=== PATIENT | male | born 1950 | race Caucasian/White ===

== ENCOUNTER → 2017-03-22 | Outpatient (REF) | payer OTHER ==
[~2017-03-22] MED LIST: AREDS 2 PO; COQ-1CAP PO; FISHCAP PO; VITAMIN D PO; VITAMIN E PO; [UNRECOGNIZED DRUG - OTHER] PO
[2017-03-22 12:23] LABS: BASO % 0.5 % (0.0-1.0); EOS # 0.2 K/mm3 (0.0-0.50); EOS % 2.6 % (0.0-3.0); LARGE UNSTAINED CELL # 0.2 K/mm3 (0.0-0.4); LARGE UNSTAINED CELL % 2.1 % (0.0-4.0); LYMPH # 1.9 K/mm3 (1.5-4.5); MEAN CORPUSCULAR HEMOGLOBIN 34.7 pg (27.0-33.0); MEAN CORPUSCULAR HGB CONC 34.8 g/dl (32.0-36.5); MEAN CORPUSCULAR VOLUME 99.7 fl (80.0-96.0); MONO # 0.4 K/mm3 (0.0-0.8); MONO % 5.6 % (0.0-5.0); NEUTROPHILS # 4.7 K/mm3 (1.8-7.7); NEUTROPHILS % 65.1 % (36.0-66.0); PLATELET COUNT, AUTOMATED 274 k/mm3 (150-450); RED CELL DISTRIBUTION WIDTH 13.1 % (11.5-14.5); WHITE BLOOD COUNT 7.3 K/mm3 (4.0-10.0)
[2017-03-22 13:08] LABS: ALBUMIN/GLOBULIN RATIO 1.29 (1.00-1.93); BILIRUBIN,TOTAL 0.5 MG/DL (0.2-1.0); CALCIUM LEVEL 9.2 MG/DL (8.8-10.2); CREATININE FOR GFR 1.65 MG/DL (0.70-1.30); GLOMERULAR FILTRATION RATE 44.8 (>49); POTASSIUM SERUM 4.4 MEQ/L (3.5-5.1); TOTAL PROTEIN 7.1 GM/DL (6.4-8.2)
== END ==
LOC: M LABDRAW1 11:19
PROVIDERS: ATTEND Emergency Medicine
DX: E78.2 Mixed hyperlipidemia (principal)

== ENCOUNTER → 2017-03-28 | Outpatient (REF) | payer OTHER ==
[2017-03-28 13:35] LABS: MEAN CORPUSCULAR HEMOGLOBIN 34.7 pg (27.0-33.0); MEAN CORPUSCULAR VOLUME 99.3 fl (80.0-96.0); RED CELL DISTRIBUTION WIDTH 12.8 % (11.5-14.5); WHITE BLOOD COUNT 5.7 K/mm3 (4.0-10.0)
[2017-03-28 13:41] LABS: URIC ACID 4.1 MG/DL (3.5-7.2)
[2017-03-28 13:59] LABS: BASOPHILS 1 % (0-4); EOSINOPHILS 3 % (0-5)
[2017-03-28 14:29] LABS: ERYTHROCYTE SEDIMENTATION RATE 35 mm/hr (0-20)
[2017-03-30 00:10] LABS: Lyme Disease IgG/IgM Antibodie <0.91 ISR (0.00-0.90); Lyme Disease IgM Ab Quantitati <0.80 index (0.00-0.79)
== END ==
LOC: M LABDRAW1 12:57
PROVIDERS: ATTEND Physician Assistant Surgical
DX: M17.11 Unilateral primary osteoarthritis, right knee (principal)

== ENCOUNTER → 2017-03-30 | Outpatient (CLI) | payer OTHER ==
[~2017-03-30] MED LIST changes: +E-Z-GAS II EFFERVESCENT PACKET (SODIUM BICARB./CITRIC ACID/SIMETHICONE) As Ordered ONE; +E-Z-HD 98% w/w 340GM SUSP BTL As Ordered ONE; +E-Z-PAQUE 96% w/w SUSP 176GM BTL As Ordered ONE
--- NOTE | 2017-03-31 07:18 | REP ---
Clinical: dysphagia. Technique: Single contrast and double contrast technique using barium sulfate substrates. Findings: Real time fluoroscopic evaluation demonstrates normal motility through the oropharynx and hypopharynx without mass/mass effect or contour abnormality. The esophagus demonstrates normal mucosal outline and distension without ulcerations, polyps, mass lesions, mucosal irregularities or extrinsic abnormalities. No areas of stenosis or stricture appreciated. A small hiatal hernia is suggested without reflux Limited evaluation of the stomach demonstrates normal gastric rugal folds. Total fluoroscopic time: 1 minute 59 seconds . Impression: Essentially normal esophagram/barium swallow study. Small hiatal hernia suggested without evidence for reflux. Signed by Korey Sarah MD 03/31/2017 07:10 A
== END ==
LOC: M RAD 08:42
PROVIDERS: ATTEND Emergency Medicine
DX: R13.10 Dysphagia, unspecified (principal)

== ENCOUNTER → 2017-05-20 | Outpatient (CLI) | payer OTHER ==
[~2017-05-20] VITALS: Ht 180.3 cm; Wt 78.9 kg
[~2017-05-20] MED LIST changes: +CENTTAB PO; +COEN1POW PO; +COUM2.5T17 PO; -E-Z-GAS II EFFERVESCENT PACKET (SODIUM BICARB./CITRIC ACID/SIMETHICONE) As Ordered ONE; -E-Z-HD 98% w/w 340GM SUSP BTL As Ordered ONE; -E-Z-PAQUE 96% w/w SUSP 176GM BTL As Ordered ONE; +GLUC1CAP10 PO; +LIDOCAINE 2% INJ 100 MG/5 ML SDV (FOR ANES.) As Ordered ONE; +MAGN1TAB25 PO; +MULT1TAB10 PO; +NIAC500T5 PO; +NS 1,000 ML IV ONE; +OMEP40CA2 PO; +PERC5TAB12 PO; +PRAV20TA2 PO; +PROPOFOL 200 MG/20 ML VIAL As Ordered ONE; +ROSU40TA PO; +VITA250011 SL; +vitamin b12 PO
--- NOTE | 2017-05-20 10:29 | ROOR ---
Patient Name: Gildardo Correa Procedure Date: 05/20/2017 10:06 AM Date of : 1950 Age: 66 Room: [facility] Gender: Male Note Status: Finalized Procedure: Upper GI endoscopy Indications: Dysphagia Providers: Trace ZEPEDA MD Referring MD: EDISON REYES MD Requesting Provider: Medicines: Monitored Anesthesia Care Complications: No immediate complications. Procedure: Pre-Anesthesia Assessment: - The heart rate, respiratory rate, oxygen saturations, blood pressure, adequacy of pulmonary ventilation, and response to care were monitored throughout the procedure. The Endoscope was introduced through the mouth, and advanced to the second part of duodenum. The upper GI endoscopy was accomplished without difficulty. The patient tolerated the procedure well. Findings: One moderate (circumferential scarring or stenosis; an endoscope may pass) benign-appearing, intrinsic stenosis was found 40 cm from the incisors. This measured 1 cm (in length) and was traversed. A TTS dilator was passed through the scope. Dilation with a 15-16.5-18 mm balloon dilator was performed to 18 mm. The dilation site was examined and showed moderate improvement in luminal narrowing. Biopsies were taken with a cold forceps for histology. Moderately severe esophagitis was found at the gastroesophageal junction. Patchy mild inflammation characterized by erosions and erythema was found in the gastric antrum. Biopsies were taken with a cold forceps for Helicobacter pylori testing. The examined duodenum was normal. Impression: - Benign-appearing esophageal stenosis. Dilated to 18 mm. - Moderate reflux esophagitis in lower esophagus. Biopsied. Rule out Subramanian's esophagus. - Mild to moderate gastritis. Biopsied. - Normal examined duodenum. Recommendation: - Use Prilosec (omeprazole) 40 mg PO daily. - (the script was sent to your pharmacy on file) - Telephone endoscopist for pathology results in 2 weeks. - Observe patient's clinical course. Trace Zepeda MD Trace ZEPEDA MD 05/20/2017 10:28:45 AM This report has been signed electronically. Number of Addenda: 0 Note Initiated On: 05/20/2017 10:06 AM Estimated Blood Loss: Estimated blood loss: none.
[2017-05-20 10:45] VITALS: BP 135/81
== END | disposition home or self-care (01) ==
LOC: M OPP 08:18
PROVIDERS: ATTEND Internal Medicine Gastroenterology
DX: R13.10 Dysphagia, unspecified (principal); K29.70 Gastritis, unspecified, without bleeding; K21.0 Gastro-esophageal reflux disease with esophagitis; K22.2 Esophageal obstruction; E78.00 Pure hypercholesterolemia, unspecified; M19.90 Unspecified osteoarthritis, unspecified site; M25.569 Pain in unspecified knee; M25.559 Pain in unspecified hip; M25.60 Stiffness of unspecified joint, not elsewhere classified; R06.83 Snoring; Z79.899 Other long term (current) drug therapy; Z80.1 Family history of malignant neoplasm of trachea, bronchus and lung; Z80.42 Family history of malignant neoplasm of prostate

== ENCOUNTER → 2017-06-30 | Outpatient (CLI) | payer MEDICARE, OTHER ==
[~2017-06-30] MED LIST changes: -LIDOCAINE 2% INJ 100 MG/5 ML SDV (FOR ANES.) As Ordered ONE; -NS 1,000 ML IV ONE; -PROPOFOL 200 MG/20 ML VIAL As Ordered ONE
[2017-06-30 10:52] LABS: MEAN CORPUSCULAR HEMOGLOBIN 34.8 pg (27.0-33.0); MEAN CORPUSCULAR HGB CONC 35.7 g/dl (32.0-36.5); MEAN CORPUSCULAR VOLUME 97.5 fl (80.0-96.0); RED CELL DISTRIBUTION WIDTH 12.9 % (11.5-14.5); WHITE BLOOD COUNT 6.5 K/mm3 (4.0-10.0)
[2017-06-30 10:56] LABS: INR 0.95
--- NOTE | 2017-06-30 11:11 | REP ---
CHEST, TWO VIEWS: Two views of the chest are performed and compared to multiple prior exams, most recently 04/26/2013. There is no evidence of acute infiltrate. The heart is upper limits of normal in size. There is mild tortuosity of the thoracic aorta. The mediastinal silhouette is unchanged. There are degenerative changes of the spine. IMPRESSION: No acute infiltrate. Signed by Vladimir Squires MD 06/30/2017 03:13 P
[2017-06-30 11:15] LABS: ALBUMIN 4.2 GM/DL (3.2-5.2); ALKALINE PHOSPHATASE 113 U/L (45-117); ALT/SGPT 26 U/L (12-78); ANION GAP 5 MEQ/L (8-16); AST/SGOT 12 U/L (15-37); BILIRUBIN,TOTAL 0.8 MG/DL (0.2-1.0); BLOOD UREA NITROGEN 31 MG/DL (7-18); CALCIUM LEVEL 9.3 MG/DL (8.8-10.2); CARBON DIOXIDE LEVEL 31 MEQ/L (21-32); CHLORIDE LEVEL 105 MEQ/L (98-107); CREATININE FOR GFR 1.26 MG/DL (0.70-1.30); GLOMERULAR FILTRATION RATE > 60.0 (>49); GLUCOSE, FASTING 81 MG/DL (80-110); POTASSIUM SERUM 3.9 MEQ/L (3.5-5.1); SODIUM LEVEL 141 MEQ/L (136-145); TOTAL PROTEIN 7.2 GM/DL (6.4-8.2)
--- NOTE | 2017-06-30 13:20 | ECGEPIP ---
Stationary ECG Study [facility] Test Date: 2017-06-30 Pat Name: TIM GARCIA Department: Room: - Gender: M Bosom Presser: JUAREZ : 1950 Requested By: Billie Owens Order Number: [id number] Reading MD: Michelle Plunkett Measurements Intervals [place] Rate: 60 P: -37 SC: 150 QRS: -24 QRSD: 121 T: 10 QT: 414 QTc: 415 Interpretive Statements SINUS RHYTHM LEFT AXIS DEVIATION MODERATE INTRAVENTRICULAR CONDUCTION DELAY NO PRIOR Electronically Signed On 06-30-2017 13:20:10 EDT by Michelle Plunkett
--- NOTE | 2017-07-12 15:41 | HPE ---
DATE OF ADMISSION: 07/12/2017 CHIEF COMPLAINT: Left hip pain. HISTORY OF PRESENT ILLNESS: This is a pleasant 67-year-old male with progressively worsening left hip pain and stiffness. He has failed to improve with conservative treatment. He has elected for surgery for his continued symptoms. He has pain with weightbearing activities and his activities of daily living. His x-rays are notable for advanced osteoarthritis of the left hip joint. He has consented for a left total hip arthroplasty by Dr. Roman Benítez. Medical optimization was performed by Dr. Noguera. ALLERGIES: None. CURRENT MEDICATIONS: - glucosamine HCl 1500 mg twice a day - CoQ 10 100 mg once a day - AREDS twice daily - Centrum Silver two times a day - vitamin B12 - magnesium 400 mg - niacin 500 mg - omeprazole 20 mg two of those once a day - rosuvastatin calcium 40 mg once a day PAST MEDICAL HISTORY: Includes high cholesterol. PAST SURGICAL HISTORY: Includes tonsillectomy and left foot Bear's neuroma excision. 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 FAMILY HISTORY: Noncontributory. REVIEW OF SYSTEMS: This patient denies chest pain, heart palpitations, cough, wheezing, difficulty breathing and shortness of breath. He denies abdominal pain, nausea, vomiting, diarrhea or constipation. He denies recent upper respiratory infection or urinary tract infection symptoms. He does complain of persistent left hip pain. PHYSICAL EXAMINATION: GENERAL: He is well-nourished, well-developed in no acute distress, alert male patient. He walks with a significant limp favoring the left lower extremity. He is using a single-leg cane. VITAL SIGNS: He is 72 inches tall, weighs 173.6 pounds with a temperature of 96.6, blood pressure 128/78, pulse of 80 and respirations of 16. Neck was supple without adenopathy or jugular venous distension. There were no carotid bruits appreciated upon auscultation. Lungs were clear to auscultation without rales or wheeze throughout. Heart with regular rate and rhythm. Abdomen: Bowel sounds were present. Extremities: Examination of the hip revealed intact skin without erythema, edema or ecchymosis. He had decreased range of motion with internal, external rotation secondary to pain and stiffness. The limb was neurovascularly intact. LABORATORY DATA: EKG showed sinus rhythm at 60 beats per minute. Chest x-ray showed no acute infiltrates. UA was within normal limits with a specific gravity of 1.018. Urine culture showed no growth. Nasal and sinus culture showed normal frank. Protime 12.8, INR 0.95. Red count of 3.59, hemoglobin 12.5, hematocrit 35.0, MCV 97.5, MCH 34.8, otherwise within normal limits. Sedimentation rate was 21, glucose 81, BUN 31, creatinine 1.26, sodium 141, potassium 3.9. IMPRESSION: Symptomatic osteoarthritis of the left hip joint. PLAN: Consented for a left total hip arthroplasty with Dr. Roman Benítez.
== END ==
LOC: M ADMPAT 09:10
PROVIDERS: ATTEND Orthopaedic Surgery
DX: Z01.818 Encounter for other preprocedural examination (principal); M16.12 Unilateral primary osteoarthritis, left hip

== ENCOUNTER 2017-07-14 07:15 | Inpatient (IN) | payer MEDICARE, OTHER ==
[2017-06-30 10:09] VITALS: BP 132/86
[2017-07-14] VITALS (7 sets, daily range): BP systolic 92–148; BP diastolic 52–78
[~2017-07-14] VITALS: Ht 180.3 cm; Wt 78.5 kg
[~2017-07-14 07:15] MED LIST changes: +ACETAMINOPHEN 500 MG TAB PO ONE; -COUM2.5T17 PO; +LR 1,000 ML IV ONE; -PERC5TAB12 PO
[2017-07-14] MEDS ORDERED: ceFAZolin 1GM INJ (J0690) As Ordered ONE (07:30)
[2017-07-14] MEDS ORDERED: fentaNYL 100 MCG/2 ML INJECTION (J3010) As Ordered ONE (10:34)
[2017-07-14] MEDS ORDERED: ePHEDrine SULFATE 25 MG/5 ML(5MG/ML) SYRINGE As Ordered ONE (10:34)
[2017-07-14] MEDS ORDERED: MIDAZOLAM INJ 2 MG/2 ML VIAL (J2250) As Ordered ONE (10:34)
[2017-07-14] MEDS ORDERED: PROPOFOL 200 MG/20 ML VIAL As Ordered ONE ×4 (10:34→11:43)
[2017-07-14] MEDS ORDERED: PHENYLephrine HCL 500 MCG/5 ML (100MCG/ML) SYRINGE (J2370) As Ordered ONE ×2 (10:38→11:40)
[2017-07-14] MEDS ORDERED: LIDOCAINE 2% INJ 100 MG/5 ML SDV (FOR ANES.) As Ordered ONE (10:43)
[2017-07-14] MEDS ORDERED: MORPHINE 1MG/ML IN 0.9% NACL 100ML IV BAG As Ordered ONE (12:26)
[2017-07-14] MEDS ORDERED: PERCOCET 5MG/325MG TAB PO PRN (12:45)
[2017-07-14] MEDS ORDERED: NALBUPHINE HCL 10 MG/ML AMP (J2300) IV PRN (12:45)
[2017-07-14] MEDS ORDERED: MORPHINE 1MG/ML IN 0.9% NACL 100ML IV BAG IV PRN (12:45)
[2017-07-14] MEDS ORDERED: ONDANSETRON 4MG/2ML VIAL (J2405) IV PRN ×2 (12:45)
[2017-07-14] MEDS ORDERED: fentaNYL 100 MCG/2 ML INJECTION (J3010) IV PRN (12:45)
[2017-07-14] MEDS ORDERED: EPIDURAL/PCA KEYS XX PRN (12:45)
[2017-07-14] MEDS ORDERED: diphenhydrAMINE INJ 50MG/ML VIAL (J1200) IV PRN (12:45)
[2017-07-14] MEDS ORDERED: LR 1,000 ML IV SCH (12:45)
[2017-07-14] MEDS ORDERED: NALOXONE INJ 0.4 MG/1 ML VIAL (J2310) IV PRN (12:45)
[2017-07-14] MEDS ORDERED: ACETAMINOPHEN TAB 650MG DOSE (2X325MG) PO PRN (12:45)
[2017-07-14] MEDS ORDERED: FLEET ENEMA PR PRN (12:45)
[2017-07-14] MEDS: LR 1,000 ML IV SCH (16:22)
[2017-07-14] MEDS ORDERED: WARFARIN SOD 5 MG TAB PO ONE (17:00)
--- NOTE | 2017-07-14 20:08 | RO ---
DATE OF PROCEDURE: 07/14/2017 PREPROCEDURE DIAGNOSIS: Left hip degenerative arthritis. POSTPROCEDURE DIAGNOSIS: Left hip degenerative arthritis. PROCEDURE: Left total hip arthroplasty using a standard size 6 Corydon stem with a +5 neck and a 36 mm head, and a 54 mm Gription acetabular cup. Prosthesis was made by [employer]. SURGEON: Dr. Billie Benítez CONTROL SYSTEMS DRAFTING OFFICER: Ms. Veronica Blanchard ANESTHESIA: Spinal. COMPLICATIONS: None. SPECIMENS: Femoral head. ESTIMATED BLOOD LOSS: 150 mL. DESCRIPTION OF PROCEDURE: Antibiotics were given intravenously preoperatively and then successful spinal anesthetic was induced, Bassett catheter placed. He was placed in a lateral decubitus position with a Sundeep hip positioner utilized, down leg well padded, especially the peroneal nerve, and an axillary roll utilized. The left hip area was then carefully prepped and draped in the usual sterile fashion. Then, after appropriate time-out, a longitudinal incision was made for a direct lateral approach to the hip. Bovie cautery was used to coagulate crossing vessels down to the tensor fascia. Tensor fascia was then divided in line with the skin incision. The gluteus medius was split in the anterior one-third, posterior two-third junction, and the underlying gluteus minimus was then divided. Carefully, the tissues were dissected off the greater trochanter distally as we externally rotated the hip. Then, eventually was able to dislocate anteriorly and place the leg in the anterior leg bag. The starter reamer was placed in the piriformis fossa, followed by the canal finding reamer, then the lateralizing reamer. Then, we reamed up to a 6 reamer. The template was used to help guide the femoral osteotomy with a saw and then we broached up to a size 6. This had good fit and fill. No calcar planing was necessary. We then exposed the acetabulum and performed a labral excision 360 degrees. We then began reaming, beginning with a 45 mm reamer and then advanced up to 53 and deepened right to the floor. Deep soft tissues were removed from the depths of the acetabulum and then a trial 54 cup actually fit nicely and good alignment with the extramedullary guide to help direct our version in abduction alignment. He had an anterior osteophyte. The Gription cup was placed, size #54, after copiously irrigating out the acetabulum as I did several times throughout the operation. The central hole eliminator was placed and then the 36 mm polyethylene was placed and checked to be sure that it was secure. We then exposed the femoral canal once again, placing the leg back into the leg bag, irrigated out the canal copiously, placed the trial broach with first the standard 1.5 neck with a 36 ball. The hip was actually quite stable in flexion and internal rotation and extension external rotation, but there was a bit of telescoping, thus I felt the +5 would be necessary. Thus, I did trial with a +5, and this improved his telescoping significantly, and I did not feel I needed to advance it further for fear of causing over lengthening. But the hip was still quite stable to flexion internal rotation and extension external rotation. I did not think we needed a lateralized stem. I did remove the trial components at this point and copiously irrigated the femoral canal once again and placed the real #6 stem, followed by the 36 mm +5 ball after drying off the trunnion. The hip was then reduced after copiously irrigating once again. I then anatomically closed the gluteus minimus back with interrupted #1 PDS sutures, gluteus medius was closed back anatomically with interrupted #1 PDS sutures, we irrigated between layers, closed the tensor fascia with a combination of interrupted #1 PDS sutures, then a running #1 Stratafix suture. Irrigated again, closed the deep subdermal tissues with interrupted #2-0 PDS sutures, skin was closed with canelo, covered by Adaptic dry sterile bulky dressing. He was then placed supine with an abduction pillow and then transferred to the recovery room in stable condition. There were no intraoperative complications. Veronica Santo was critical to the success of the procedure by helping to manipulate the leg back in and out of the leg bag, helped to provide appropriate soft tissue retraction as necessary for me to perform the operation smoothly and efficiently and safely.
--- NOTE | 2017-07-14 20:16 | CR.PDOC ---
[facility] Consultation Consultation DATE OF CONSULTATION: 07/14/17 PRIMARY CARE PHYSICIAN: Dr. Noguera REFERRING PROVIDER: Beny Blanco M.D. ATTENDING PHYSICIAN: Dr. Blanchard REASON FOR CONSULTATION/CHIEF COMPLAINT: . Medical management HISTORY OF PRESENT ILLNESS: . 67-year-old male with past medical history of GERD, dyslipidemia, and osteoarthritis was admitted to [facility] for total left hip replacement. At this time , the patient denies any acute complaints of fevers, chills, chest pain, shortness of breath, abdominal pain, or any nausea/vomiting/diarrhea. The patient does state that he has some limited range of motion of his left hip due to recent surgical intervention. However, states that his pain is well controlled. The hospitalist service was consulted for medical management of the patient's chronic comorbidities. ALLERGIES: Please see below. HOME MEDICATIONS: Please see below. PAST MEDICAL HISTORY: 1. . As noted in HPI. PAST SURGICAL HISTORY: 1. Tonsillectomy, left foot Bear's neuroma excision FAMILY HISTORY: Noncontributory SOCIAL HISTORY: Nonsmoker, occasionally takes alcohol, denies any illicit drug use. 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 REVIEW OF SYSTEMS: 10 point review of systems negative unless otherwise specified in HPI. PHYSICAL EXAMINATION: VITAL SIGNS: Please see below. GENERAL APPEARANCE: . Awake, alert, in no acute distress HEENT: . Normocephalic, atraumatic RESPIRATORY: . Clear to auscultation bilaterally CARDIOVASCULAR: . Normal rate, normal S1, S2 ABDOMEN: . Soft, nontender, nondistended EXTREMITIES: . Left hip with limited range of motion secondary to recent surgery. Surgical dressing applied incisional site. LABORATORY DATA: Please see below. Left hip arthroplasty DVT and pain management as per surgical team Dyslipidemia Statin GERD Continue PPI DVT prophylaxis As per surgical team Thank you for allowing the medicine service to participate in the care of this patient. The patient will be followed by Dr. Osorio of the hospitalist service starting 07/15/17 at 7 AM should you have any further inquiries. Vital Signs/I&O Vital Signs Date Time Temp Pulse Resp B/P (MAP) Pulse Ox O2 Delivery O2 Flow Rate FiO2 07/14/17 17:45 99.2 88 11 98/54 (69) 100 Nasal Cannula 2.0 Allergies Coded Allergies: No Known Allergies (Unverified , 05/13/17) Home Medications Scheduled Coenzyme Q10 (Coenzyme Q-10) 1 Pow Pow, 1 TAB PO QAM, (Reported) Cyanocobalamin (Vitamin B-12) 2,500 Mcg Sub, 2,500 MCG SL QAM, (Reported) Glucosamine Chondroitin (Glucosamine Chondroitin) 1 Cap Cap, 1 CAP PO BID, ( Reported) Magnesium Oxide (Magnesium) 400 Mg Tab, 400 MG PO QAM, (Reported) Multivitamins (Centrum Silver) 1 Tab Tab, 1 TAB PO BID, (Reported) Niacin (Niacin) 500 Mg Tab, 500 MG PO QAM, (Reported) Omeprazole (Omeprazole) 40 Mg Cap, 40 MG PO QAM, (Reported) Rosuvastatin Calcium (Rosuvastatin Calcium) 40 Mg Tab, 40 MG PO QHS, (Reported) [Areds 2] , Unknown Dose PO BID, (Reported) BENY BLANCO MD Jul 14, 2017 20:16
[2017-07-14] MEDS: ROSUVASTATIN 10 MG TAB (CRESTOR) PO SCH (22:18)
[2017-07-14] MEDS: MULTIVITAMINS/MINERALS THERAP 1 TAB PO SCH (22:18)
[2017-07-15] VITALS (7 sets, daily range): BP systolic 114–160; BP diastolic 60–78; O2SAT 96
[2017-07-15] MEDS: LR 1,000 ML IV SCH (01:15)
[2017-07-15 06:42] LABS: MEAN CORPUSCULAR HEMOGLOBIN 34.1 pg (27.0-33.0); MEAN CORPUSCULAR HGB CONC 33.4 g/dl (32.0-36.5); MEAN CORPUSCULAR VOLUME 102.1 fl (80.0-96.0); RED CELL DISTRIBUTION WIDTH 13.3 % (11.5-14.5); WHITE BLOOD COUNT 12.6 K/mm3 (4.0-10.0)
[2017-07-15 06:58] LABS: CREATININE FOR GFR 2.47 MG/DL (0.70-1.30); POTASSIUM SERUM 4.4 MEQ/L (3.5-5.1)
[2017-07-15] MEDS: MIRALAX *UNIT DOSE* 17GM PACKET PO SCH (08:35)
[2017-07-15] MEDS: MOM 30ML SUSPENSION UDC PO SCH (08:35)
[2017-07-15] MEDS: OMEPRAZOLE 20 MG CAP PO SCH (08:36)
[2017-07-15] MEDS: PERCOCET 5MG/325MG TAB PO PRN ×4 (08:36→22:53)
[2017-07-15] MEDS: MULTIVITAMINS/MINERALS THERAP 1 TAB PO SCH ×2 (08:36→22:53)
[2017-07-15] MEDS: ONDANSETRON 4 MG TAB (S0181) PO PRN ×2 (08:36→12:42)
--- NOTE | 2017-07-15 11:29 | REP ---
Clinical: Status post arthroplasty. Technique: AP and cross-table lateral views. Findings: The patient is status post left hip replacement with normal positioning and appearance to the femoral and acetabular components. Overlying postsurgical changes appreciated. Impression: Satisfactory left hip replacement radiographs. Signed by Korey Sarah MD 07/15/2017 11:22 A
[2017-07-15] MEDS: SIMETHICONE 80 MG CHEW TAB PO SCH ×3 (12:42→22:53)
[2017-07-15] MEDS: OCUVITE 1 TAB PO SCH ×2 (12:42→22:53)
--- NOTE | 2017-07-15 14:31 | IPNPDOC ---
Subjective Date Seen The patient was seen on 07/15/17. Subjective Chief Complaint/HPI The patient is a 67-year-old male admitted with a reason for visit of Arthritis Left Hip. Events since last encounter complains of bloating and flatulence and acid reflux. did not have any appetite this am and could not eat any breakfast. no nausea or vomiting no abdominal pain or diarrhea. No fever or chills. Objective Physical Examination General Exam: Positive: Alert, Cooperative, No Acute Distress Eye Exam: Positive: PERRLA, Conjunctiva & lids normal, EOMI, Negative: Sclera icteric ENT Exam: Positive: Atraumatic, Mucous membr. moist/pink, Pharynx Normal Neck Exam: Positive: Supple, Negative: JVD, thyromegaly Chest Exam: Positive: Clear to auscultation, Normal air movement Telemetry: Positive: No significant arrhythmia Abdomen Exam: Positive: Normal bowel sounds, Soft, Negative: Tenderness, Hepatospenomegaly Extremity Exam: Positive: Normal pulses, Negative: Clubbing, Cyanosis, Edema Assessment /Plan Problems (1) S/P total hip arthroplasty Status: Acute Problem Text: s/p left total hip arthroplasty for advanced osteoarthritis pain control and dvt prophylaxis as per ortho. (2) GERD (gastroesophageal reflux disease) Status: Chronic Problem Text: continue on ppi will give simethicone. (3) Dyslipidemia Status: Chronic (4) KAVON (acute kidney injury) Status: Acute Problem Text: will monitor i and o , ivf , avoid nephrotoxins. Plan/VTE VTE Prophylaxis Ordered?: Yes VS, I&O, 24H, Fishbone Vital Signs/I&O Vital Signs Date Time Temp Pulse Resp B/P (MAP) Pulse Ox O2 Delivery O2 Flow Rate FiO2 07/15/17 12:43 18 07/15/17 10:00 97.7 90 128/68 (88) 99 Room Air 07/15/17 06:00 2.0 I&O- Last 24 Hours up to 6 AM 07/15/17 06:00 Intake Total 2690 ml Output Total 1350 ml Balance 1340 ml Laboratory Data 24H LABS Laboratory Tests 2 07/15/17 06:18: Anion Gap 11, Glomerular Filtration Rate 28.0L, Blood Urea Nitrogen 26H, Creatinine 2.47H, Sodium Level 144, Potassium Level 4.4, Chloride Level 105, Carbon Dioxide Level 28, Calcium Level 8.0L CBC/BMP Laboratory Tests 07/15/17 06:18 Red Blood Count 3.17 L, Mean Corpuscular Volume 102.1 H, Mean Corpuscular Hemoglobin 34.1 H, Mean Corpuscular Hemoglobin Concent 33.4, Red Cell Distribution Width 13.3, Calcium Level 8.0 L QUIANA DAMON MD Jul 15, 2017 14:31
--- NOTE | 2017-07-15 16:43 | REP ---
Clinical: Abdominal distension. Ileus. Technique: Two supine views of the abdomen and pelvis. Findings: Bowel gas pattern is nonspecific. Skeletal structures demonstrate age-related degenerative changes. No organomegaly. No abnormal calcifications. Surgical clips in the left lower abdomen. Impression: Nonspecific bowel gas pattern. Signed by Korey Sarah MD 07/15/2017 04:35 P
[2017-07-15] MEDS ORDERED: WARFARIN SOD 5 MG TAB PO ONE (17:00)
[2017-07-15] MEDS: METOCLOPRAMIDE INJ 10MG/2ML VIAL (J2765) IV SCH ×2 (17:12→22:52)
[2017-07-15] MEDS: D5W/0.9% SODIUM CHLORIDE 1,000 ML IV SCH (17:12)
[2017-07-15] MEDS: PANTOPRAZOLE 40MG INJ (PROTONIX) (C9113) IV SCH (22:52)
[2017-07-15] MEDS: ROSUVASTATIN 10 MG TAB (CRESTOR) PO SCH (22:52)
[2017-07-16] MEDS: METOCLOPRAMIDE INJ 10MG/2ML VIAL (J2765) IV SCH ×3 (05:17→20:40)
[2017-07-16] MEDS: PERCOCET 5MG/325MG TAB PO PRN ×3 (05:18→14:45)
[2017-07-16] MEDS: D5W/0.9% SODIUM CHLORIDE 1,000 ML IV SCH ×2 (05:18→18:18)
[2017-07-16] MEDS: SIMETHICONE 80 MG CHEW TAB PO SCH ×3 (05:18→17:07)
[2017-07-16 06:00] VITALS: BP 135/64
[2017-07-16 06:34] LABS: MEAN CORPUSCULAR HEMOGLOBIN 34.8 pg (27.0-33.0); MEAN CORPUSCULAR VOLUME 99.4 fl (80.0-96.0); RED CELL DISTRIBUTION WIDTH 12.8 % (11.5-14.5); WHITE BLOOD COUNT 10.6 K/mm3 (4.0-10.0)
[2017-07-16 06:40] LABS: INR 1.38
[2017-07-16 06:57] LABS: CALCIUM LEVEL 8.5 MG/DL (8.8-10.2); CREATININE FOR GFR 1.45 MG/DL (0.70-1.30); GLOMERULAR FILTRATION RATE 51.8 (>49); POTASSIUM SERUM 3.8 MEQ/L (3.5-5.1)
[2017-07-16] MEDS: MOM 30ML SUSPENSION UDC PO SCH (08:52)
[2017-07-16] MEDS: PANTOPRAZOLE 40MG INJ (PROTONIX) (C9113) IV SCH ×2 (08:52→20:39)
[2017-07-16] MEDS: MIRALAX *UNIT DOSE* 17GM PACKET PO SCH (08:52)
[2017-07-16] MEDS: OCUVITE 1 TAB PO SCH ×2 (08:53→20:40)
[2017-07-16] MEDS: OMEPRAZOLE 20 MG CAP PO SCH (08:53)
[2017-07-16] MEDS: MULTIVITAMINS/MINERALS THERAP 1 TAB PO SCH ×2 (08:53→20:40)
--- NOTE | 2017-07-16 10:34 | IPNPDOC ---
Subjective Date Seen The patient was seen on 07/16/17. Subjective Chief Complaint/HPI The patient is a 67-year-old male admitted with a reason for visit of Arthritis Left Hip. Events since last encounter pateint still complains of bloating last evening had several episodes of brownish vomiting episodes was not passing much gas yesterday so was placed npo , ivf and pantoprazole bid, had abdominal xary showed nonspecific bowel gas pattern, suggested ng tube but patient refused. this am says passing gas and feels bloating is a little less. Objective Physical Examination General Exam: Positive: Alert, Cooperative, No Acute Distress Eye Exam: Positive: PERRLA, Conjunctiva & lids normal, EOMI, Negative: Sclera icteric ENT Exam: Positive: Atraumatic, Mucous membr. moist/pink, Pharynx Normal Neck Exam: Positive: Supple, Negative: JVD, thyromegaly Chest Exam: Positive: Clear to auscultation, Normal air movement Heart Exam: Positive: Rate Normal, Regular Rhythm, Normal S1, Normal S2, Negative: Gallops, Murmurs, Rubs, Other Abdomen Exam: Positive: BS Hypoactive, Soft, Other (distended abdomen ), Negative: Tenderness, Hepatospenomegaly Extremity Exam: Positive: Normal pulses, Negative: Clubbing, Cyanosis, Edema Assessment /Plan Problems (1) Ileus, postoperative Status: Acute Response to Treatment: Improving Problem Text: Had mild post operative ileus improving with bowel rest and ivf. will start clear liquids today (2) KAVON (acute kidney injury) Status: Acute Problem Text: prerenal improving with IVF will monitor I/O (3) S/P total hip arthroplasty Status: Acute Problem Text: s/p left total hip arthroplasty for advanced osteoarthritis pain control and dvt prophylaxis as per ortho. (4) Dyslipidemia Status: Chronic (5) GERD (gastroesophageal reflux disease) Status: Chronic Problem Text: continue on ppi will give simethicone. Plan/VTE VTE Prophylaxis Ordered?: Yes VS, I&O, 24H, Fishbone Vital Signs/I&O Vital Signs Date Time Temp Pulse Resp B/P (MAP) Pulse Ox O2 Delivery O2 Flow Rate FiO2 07/16/17 09:50 18 07/16/17 06:00 97.7 84 135/64 (87) 99 Nasal Cannula 2.0 I&O- Last 24 Hours up to 6 AM 07/16/17 06:00 Intake Total 472.5 ml Output Total 1225 ml Balance -752.5 ml Laboratory Data 24H LABS Laboratory Tests 2 07/16/17 05:59: Prothrombin Time 17.3H, Prothromb Time International Ratio 1.38, Anion Gap 9, Glomerular Filtration Rate 51.8, Blood Urea Nitrogen 31H, Creatinine 1.45H, Sodium Level 140, Potassium Level 3.8, Chloride Level 103, Carbon Dioxide Level 28, Calcium Level 8.5L CBC/BMP Laboratory Tests 07/16/17 05:59 Red Blood Count 2.82 L, Mean Corpuscular Volume 99.4 H, Mean Corpuscular Hemoglobin 34.8 H, Mean Corpuscular Hemoglobin Concent 35.0, Red Cell Distribution Width 12.8, Calcium Level 8.5 L QUIANA DAMON MD Jul 16, 2017 10:34
[2017-07-16 14:00] VITALS: BP 126/69
[2017-07-16] MEDS ORDERED: WARFARIN SOD 3 MG TAB PO ONE (17:00)
[2017-07-16] MEDS: ROSUVASTATIN 10 MG TAB (CRESTOR) PO SCH (20:40)
[2017-07-16 22:00] VITALS: BP 164/84
[2017-07-17] MEDS: SIMETHICONE 80 MG CHEW TAB PO SCH ×2 (00:58→06:10)
[2017-07-17] MEDS: PERCOCET 5MG/325MG TAB PO PRN ×2 (01:01→10:20)
[2017-07-17 05:55] LABS: MEAN CORPUSCULAR HEMOGLOBIN 34.4 pg (27.0-33.0); MEAN CORPUSCULAR HGB CONC 34.3 g/dl (32.0-36.5); MEAN CORPUSCULAR VOLUME 100.5 fl (80.0-96.0); RED CELL DISTRIBUTION WIDTH 12.9 % (11.5-14.5); WHITE BLOOD COUNT 8.5 K/mm3 (4.0-10.0)
[2017-07-17 06:00] VITALS: BP 150/74
[2017-07-17 06:01] LABS: INR 1.64
[2017-07-17] MEDS: METOCLOPRAMIDE INJ 10MG/2ML VIAL (J2765) IV SCH (06:10)
[2017-07-17 06:22] LABS: CALCIUM LEVEL 8.2 MG/DL (8.8-10.2); CHLORIDE LEVEL 106 MEQ/L (98-107); GLUCOSE, FASTING 135 MG/DL (80-110); POTASSIUM SERUM 4.2 MEQ/L (3.5-5.1); SODIUM LEVEL 142 MEQ/L (136-145)
[2017-07-17 06:33] LABS: BLOOD UREA NITROGEN 17 MG/DL (7-18)
[2017-07-17 06:39] LABS: ANION GAP 3 MEQ/L (8-16); CARBON DIOXIDE LEVEL 33 MEQ/L (21-32)
[2017-07-17] MEDS ORDERED: PERC5TAB12 PO (07:17)
[2017-07-17] MEDS ORDERED: COUM2.5T17 PO (07:17)
[2017-07-17] MEDS: PANTOPRAZOLE 40MG INJ (PROTONIX) (C9113) IV SCH (09:00)
[2017-07-17] MEDS: OCUVITE 1 TAB PO SCH (10:20)
[2017-07-17] MEDS: MOM 30ML SUSPENSION UDC PO SCH (10:20)
[2017-07-17] MEDS: MIRALAX *UNIT DOSE* 17GM PACKET PO SCH (10:20)
[2017-07-17] MEDS: MULTIVITAMINS/MINERALS THERAP 1 TAB PO SCH (10:21)
[2017-07-17] MEDS: OMEPRAZOLE 20 MG CAP PO SCH (10:21)
--- NOTE | 2017-07-17 10:27 | IPNPDOC ---
Subjective Date Seen The patient was seen on 07/17/17. Subjective Chief Complaint/HPI The patient is a 67-year-old male admitted with a reason for visit of Arthritis Left Hip. Events since last encounter feeling better , moving gas though has not had any bowel movements yet, no vomiting has been tolerating oral liquids. Objective Physical Examination General Exam: Positive: Alert, Cooperative, No Acute Distress Eye Exam: Positive: PERRLA, Conjunctiva & lids normal, EOMI, Negative: Sclera icteric ENT Exam: Positive: Atraumatic, Mucous membr. moist/pink, Pharynx Normal Neck Exam: Positive: Supple, Negative: JVD, thyromegaly Chest Exam: Positive: Clear to auscultation, Normal air movement Heart Exam: Positive: Rate Normal, Regular Rhythm, Normal S1, Normal S2, Negative: Gallops, Murmurs, Rubs, Other Abdomen Exam: Positive: BS Hypoactive, Soft, Other (distended abdomen ), Negative: Tenderness, Hepatospenomegaly Extremity Exam: Positive: Normal pulses, Negative: Clubbing, Cyanosis, Edema Assessment /Plan Problems (1) Ileus, postoperative Status: Resolved Response to Treatment: Improving Problem Text: will advance to soft diet. (2) KAVON (acute kidney injury) Status: Resolved Problem Text: prerenal improved stop IVF (3) S/P total hip arthroplasty Status: Acute Problem Text: s/p left total hip arthroplasty for advanced osteoarthritis pain control and dvt prophylaxis as per ortho. (4) Dyslipidemia Status: Chronic (5) GERD (gastroesophageal reflux disease) Status: Chronic Problem Text: continue on ppi will give simethicone. Plan/VTE VTE Prophylaxis Ordered?: Yes VS, I&O, [facility]H, [facility] Vital Signs/I&O Vital Signs Date Time Temp Pulse Resp B/P (MAP) Pulse Ox O2 Delivery O2 Flow Rate FiO2 07/17/17 10:20 18 07/17/17 06:00 97.2 89 150/74 (99) 99 Room Air 07/17/17 01:31 2.0 I&O- Last 24 Hours up to 6 AM 07/17/17 06:00 Intake Total 4425 ml Output Total 850 ml Balance 3575 ml Laboratory Data 24H LABS Laboratory Tests 2 07/17/17 05:39: Prothrombin Time 19.9H, Prothromb Time International Ratio 1.64, Anion Gap 3L, Blood Urea Nitrogen 17, Creatinine 1.00, Sodium Level 142, Potassium Level 4.2, Chloride Level 106, Carbon Dioxide Level 33H, Calcium Level 8.2L CBC/BMP Laboratory Tests 07/17/17 05:39 Red Blood Count 2.56 L, Mean Corpuscular Volume 100.5 H, Mean Corpuscular Hemoglobin 34.4 H, Mean Corpuscular Hemoglobin Concent 34.3, Red Cell Distribution Width 12.9, Calcium Level 8.2 L QUIANA DAMON MD Jul 17, 2017 10:27
--- NOTE | 2017-07-21 09:18 | DSES ---
DATE OF ADMISSION: 07/14/2017 DATE OF DISCHARGE: 07/17/2017 ADMISSION DIAGNOSIS: Osteoarthritis of the left hip. OTHER DIAGNOSES: Gastric reflux disease and elevated lipids. DISCHARGE DIAGNOSIS: Osteoarthritis of the left hip, status post left total hip arthroplasty. OPERATION PERFORMED: Left total hip arthroplasty. HISTORY: This pleasant 67-year-old male patient with progressively worsening left hip pain and stiffness. He failed to improve with conservative management. He was admitted for elective hip replacement on the left side. HOSPITAL COURSE: The patient was admitted on day of surgery and underwent a left total hip arthroplasty, which was uneventful. He did well in the postoperative period. His hospital course was without complications. He was up with physical therapy per their protocol. His pain was controlled. On day of discharge, he was doing well, weightbearing as tolerated on his left lower extremity. He will use adjusted dose Coumadin and LAINE stockings for 30 days postoperative for deep vein thrombosis (DVT) prophylaxis. He will resume his preoperative medications and diet. He was given instructions to include but not limited to wound monitoring and activity limitations. He will follow up in our office in 10-14 days for surgical followup. He will use oral pain medications for pain control. Please refer to the medical record for further details.
== END 2017-07-17 12:40 | disposition home health service (06) | DRG 470 ==
LOC: M OR 07:15 → M MS5PR 13:05
PROVIDERS: ADMIT Orthopaedic Surgery; ATTEND Orthopaedic Surgery
PROC: 0SRB02Z Replacement of Left Hip Joint with Metal on Polyethylene Synthetic Substitute, Open Approach (ICD-10-PCS; principal; 2017-07-14 09:30)
DX: M16.0 Bilateral primary osteoarthritis of hip (principal); N17.9 Acute kidney failure, unspecified; K56.7 Ileus, unspecified; K21.9 Gastro-esophageal reflux disease without esophagitis; E78.5 Hyperlipidemia, unspecified; M54.2 Cervicalgia; M54.5 Low back pain; Z79.899 Other long term (current) drug therapy

== ENCOUNTER → 2017-11-08 | Outpatient (CLI) | payer MEDICARE, OTHER ==
[2017-11-08 10:17] LABS: HEMOGLOBIN 13.5 g/dl (14.0-18.0); MEAN CORPUSCULAR HEMOGLOBIN 31.7 pg (27.0-33.0); MEAN CORPUSCULAR HGB CONC 33.8 g/dl (32.0-36.5); MEAN CORPUSCULAR VOLUME 93.9 fl (80.0-96.0); PLATELET COUNT, AUTOMATED 249 10^3/uL (150-450); RED BLOOD COUNT 4.26 10^6/uL (4.30-6.10); RED CELL DISTRIBUTION WIDTH 14.1 % (11.5-14.5); WHITE BLOOD COUNT 6.1 10^3/uL (4.0-10.0)
[2017-11-08 10:18] LABS: APPEARANCE, URINE CLEAR (CLEAR); BACTERIA, URINE AUTO NEGATIVE (NEGATIVE); BILIRUBIN, URINE AUTO NEGATIVE (NEGATIVE); BLOOD, URINE BLOOD NEGATIVE (NEGATIVE); COLOR, URINE YELLOW (YELLOW); GLUCOSE, URINE (UA) AUTO NEGATIVE (NEGATIVE); KETONE, URINE AUTO NEGATIVE (NEGATIVE); LEUKOCYTE ESTERASE, URINE AUTO NEGATIVE (NEGATIVE); NITRITE, URINE AUTO NEGATIVE (NEGATIVE); PROTEIN, URINE AUTO NEGATIVE (NEGATIVE); RBC, URINE AUTO 2 /HPF (0-3); SPECIFIC GRAVITY URINE AUTO 1.012 (1.002-1.035); SQUAMOUS EPITHELIAL CELL UR AU 0 /HPF (0-6); UROBILINOGEN, URINE AUTO 0.2 mg/dL (0.0-2.0); WBC, URINE AUTO 0 /HPF (0-3)
[2017-11-08 10:31] LABS: INR 0.97
[2017-11-08 10:44] LABS: ALBUMIN 4.2 GM/DL (3.2-5.2); ALBUMIN/GLOBULIN RATIO 1.31 (1.00-1.93); ALKALINE PHOSPHATASE 135 U/L (45-117); ALT/SGPT 20 U/L (12-78); ANION GAP 4 MEQ/L (8-16); AST/SGOT 16 U/L (7-37); BILIRUBIN,TOTAL 0.5 MG/DL (0.2-1.0); BLOOD UREA NITROGEN 21 MG/DL (7-18); CALCIUM LEVEL 8.7 MG/DL (8.8-10.2); CARBON DIOXIDE LEVEL 32 MEQ/L (21-32); CHLORIDE LEVEL 103 MEQ/L (98-107); CREATININE FOR GFR 0.94 MG/DL (0.70-1.30); GLOMERULAR FILTRATION RATE > 60.0 (>49); GLUCOSE, FASTING 94 MG/DL (80-110); POTASSIUM SERUM 4.5 MEQ/L (3.5-5.1); SODIUM LEVEL 139 MEQ/L (136-145); TOTAL PROTEIN 7.4 GM/DL (6.4-8.2)
[2017-11-08 10:53] LABS: ERYTHROCYTE SEDIMENTATION RATE 14 mm/hr (0-20)
== END ==
LOC: M ADMPAT 09:17
DX: Z01.818 Encounter for other preprocedural examination (principal); M16.11 Unilateral primary osteoarthritis, right hip; E78.00 Pure hypercholesterolemia, unspecified; I10 Essential (primary) hypertension
CPT/HCPCS: 71046

== ENCOUNTER 2017-11-21 05:35 | Inpatient (IN) | payer MEDICARE, OTHER ==
[2017-11-21] MEDS: LR 1,000 ML IV ×4 (05:45→22:18)
[2017-11-21] MEDS ORDERED: LR 1,000 ML IV (06:00)
[2017-11-21] MEDS: ACETAMINOPHEN 500 MG TAB PO (07:06)
[2017-11-21] MEDS ORDERED: PROPOFOL 200 MG/20 ML VIAL As Ordered ×2 (07:14→08:36)
[2017-11-21] MEDS ORDERED: MIDAZOLAM INJ 5 MG/ML VIAL (J2250) As Ordered (07:15)
[2017-11-21] MEDS ORDERED: MIDAZOLAM INJ 2 MG/2 ML VIAL (J2250) As Ordered (07:15)
[2017-11-21] MEDS ORDERED: ROCURONIUM BROMIDE 50 MG/5 ML VIAL As Ordered (07:17)
[2017-11-21] MEDS ORDERED: LIDOCAINE 2% INJ 100 MG/5 ML SDV (FOR ANES.) As Ordered (07:29)
[2017-11-21] MEDS ORDERED: fentaNYL 100 MCG/2 ML INJECTION (J3010) As Ordered (07:30)
[2017-11-21] MEDS ORDERED: ePHEDrine SULFATE 25 MG/5 ML(5MG/ML) SYRINGE As Ordered (08:10)
[2017-11-21] MEDS ORDERED: PHENYLephrine HCL 500 MCG/5 ML (100MCG/ML) SYRINGE (J2370) As Ordered (08:10)
[2017-11-21] MEDS: TRANEXAMIC ACID 100 MG/ML 10ML VIAL As Ordered (08:13)
[2017-11-21] MEDS: ceFAZolin 1GM INJ (J0690 PER 500MG) As Ordered (08:14)
[2017-11-21] MEDS: EPINEPHrine INJ 1 MG/ML 1ML AMP As Ordered (08:14)
[2017-11-21] MEDS ORDERED: MORPHINE 1MG/ML IN 0.9% NACL 100ML IV BAG As Ordered (09:48)
[2017-11-21] MEDS: MORPHINE 1MG/ML IN 0.9% NACL 100ML IV BAG IV (10:05)
[2017-11-21] MEDS ORDERED: ONDANSETRON 4MG/2ML VIAL (J2405) IV ×2 (10:30)
[2017-11-21] MEDS ORDERED: ACETAMINOPHEN TAB 650MG DOSE (2X325MG) PO (10:30)
[2017-11-21] MEDS ORDERED: fentaNYL 100 MCG/2 ML INJECTION (J3010) IV (10:30)
[2017-11-21] MEDS ORDERED: NALOXONE INJ 0.4 MG/1 ML VIAL (J2310) IV (10:30)
[2017-11-21] MEDS ORDERED: FLEET ENEMA PR (10:30)
[2017-11-21] MEDS ORDERED: EPIDURAL/PCA KEYS XX (10:30)
[2017-11-21] MEDS ORDERED: diphenhydrAMINE INJ 50MG/ML VIAL (J1200) IV (10:30)
[2017-11-21] MEDS ORDERED: HYDROmorphone HCL 1 MG/ML SYRINGE (J1170) IV (10:30)
[2017-11-21] MEDS ORDERED: PERCOCET 5MG/325MG TAB PO (10:30)
[2017-11-21] MEDS ORDERED: NALBUPHINE HCL 10 MG/ML AMP (J2300) IV (10:30)
[2017-11-21] MEDS: WARFARIN SOD 5 MG TAB PO (17:14)
[2017-11-22] MEDS ORDERED: PERCOCET 5MG/325MG TAB PO (06:45)
[2017-11-22] MEDS ORDERED: ONDANSETRON 4 MG TAB (S0181) PO (06:45)
[2017-11-22 07:37] LABS: HEMATOCRIT 32.4 % (42.0-52.0); HEMOGLOBIN 10.7 g/dl (14.0-18.0); MEAN CORPUSCULAR HEMOGLOBIN 32.2 pg (27.0-33.0); MEAN CORPUSCULAR VOLUME 97.6 fl (80.0-96.0); PLATELET COUNT, AUTOMATED 204 10^3/uL (150-450); RED BLOOD COUNT 3.32 10^6/uL (4.30-6.10); RED CELL DISTRIBUTION WIDTH 14.7 % (11.5-14.5); WHITE BLOOD COUNT 8.7 10^3/uL (4.0-10.0)
[2017-11-22 07:48] LABS: INR 1.07; PROTHROMBIN TIME 14.1 SECONDS (12.4-14.5)
[2017-11-22 07:57] LABS: ANION GAP 4 MEQ/L (8-16); BLOOD UREA NITROGEN 16 MG/DL (7-18); CALCIUM LEVEL 8.2 MG/DL (8.8-10.2); CARBON DIOXIDE LEVEL 32 MEQ/L (21-32); CHLORIDE LEVEL 101 MEQ/L (98-107); CREATININE FOR GFR 0.75 MG/DL (0.70-1.30); GLOMERULAR FILTRATION RATE > 60.0 (>49); GLUCOSE, FASTING 140 MG/DL (80-110); POTASSIUM SERUM 4.3 MEQ/L (3.5-5.1); SODIUM LEVEL 137 MEQ/L (136-145)
[2017-11-22] MEDS: OMEPRAZOLE 20 MG CAP PO (08:03)
[2017-11-22] MEDS: MIRALAX *UNIT DOSE* 17GM PACKET PO (08:03)
[2017-11-22] MEDS: SENOKOT S TAB PO (08:03)
[2017-11-22] MEDS: ROSUVASTATIN 10 MG TAB (CRESTOR) PO (08:03)
[2017-11-22] MEDS: MOM 30ML SUSPENSION UDC PO (08:03)
[2017-11-22] MEDS: PERCOCET 5MG/325MG TAB PO ×2 (08:04→12:57)
[2017-11-22] MEDS: ENOXAPARIN 40 MG/0.4 ML SYRINGE (J1650) SC (10:20)
[2017-11-22] MEDS ORDERED: WARFARIN SOD 5 MG TAB PO (17:00)
== END 2017-11-22 14:05 | disposition home health service (06) | DRG 470 ==
LOC: M OR 05:35 → M MS5PR 11:10
PROC: 0SR902Z Replacement of Right Hip Joint with Metal on Polyethylene Synthetic Substitute, Open Approach (ICD-10-PCS; principal; 2017-11-21 07:30)
DX: M16.11 Unilateral primary osteoarthritis, right hip (principal); E78.5 Hyperlipidemia, unspecified; K21.9 Gastro-esophageal reflux disease without esophagitis; M51.36 Other intervertebral disc degeneration, lumbar region; M50.30 Other cervical disc degeneration, unspecified cervical region; Z79.899 Other long term (current) drug therapy; Z96.642 Presence of left artificial hip joint

== ENCOUNTER → 2017-12-01 | Outpatient (REF) | payer MEDICARE, OTHER ==
[2017-12-01 13:35] LABS: INR 1.83; PROTHROMBIN TIME 21.7 SECONDS (12.4-14.5)
== END ==
LOC: M SHH 12:50
DX: Z79.01 Long term (current) use of anticoagulants (principal)
CPT/HCPCS: 85610

== ENCOUNTER 2023-04-05 11:46 | Day surgery (SDC) | payer MEDICARE, OTHER ==
[~2023-04-05] VITALS: Ht 180.3 cm; Wt 78.8 kg
[~2023-04-05 11:46] MED LIST changes: -ACETAMINOPHEN 500 MG TAB PO ONE; +CENT1TAB PO; +COUM2.5T17 PO; +DILT30TA PO; +FERR325T81 PO; -LR 1,000 ML IV ONE; -MAGN1TAB25 PO; +MAGN1TAB26 PO; +NS 1,000 ML IV ONE; -OMEP40CA2 PO; +OMEP40CA4 PO; +PERC5TAB12 PO; +PRES10CA2 PO; +RA M500C PO; -ROSU40TA PO; +ROSU40TA4 PO
[2023-04-05] MEDS ORDERED: propofoL 200 MG/20 ML VIAL As Ordered ONE (13:45)
[2023-04-05] MEDS ORDERED: LIDOCAINE 2% 100MG/5ML SDV (FOR ANES.) As Ordered ONE (13:45)
[2023-04-05 14:35] VITALS: BP 144/75
== END 2023-04-05 14:51 | disposition home or self-care (01) ==
LOC: M OPP 11:46
PROVIDERS: ATTEND Surgery
DX: Z12.11 Encounter for screening for malignant neoplasm of colon (principal); Z86.010 Personal history of colon polyps; D12.2 Benign neoplasm of ascending colon; D12.5 Benign neoplasm of sigmoid colon; K64.1 Second degree hemorrhoids; K57.30 Diverticulosis of large intestine without perforation or abscess without bleeding; Z79.2 Long term (current) use of antibiotics; Z79.899 Other long term (current) drug therapy

== ENCOUNTER 2025-06-27 07:54 | Day surgery (SDC) | payer MEDICARE, OTHER ==
[~2025-06-27] VITALS: Ht 180.3 cm; Wt 72.7 kg
[~2025-06-27 07:54] MED LIST changes: +EZET10TA21 PO; +FERR32TA PO; -NS 1,000 ML IV ONE; -PRAV20TA2 PO; +PRAV20TA78 PO; -ROSU40TA4 PO; +ROSU40TA81 PO
[2025-06-27] MEDS ORDERED: KETOROLAC 30 MG/ML 1 ML VIAL As Ordered ONE (08:06)
[2025-06-27] MEDS ORDERED: ROCURONIUM BROMIDE 50MG/5ML VIAL As Ordered ONE (08:06)
[2025-06-27] MEDS ORDERED: SUGAMMADEX SODIUM 500 MG/5 ML VIAL As Ordered ONE (08:06)
[2025-06-27] MEDS ORDERED: dexAMETHasone 4 MG/ML 1 ML VIAL As Ordered ONE (08:06)
[2025-06-27] MEDS ORDERED: LIDOCAINE 2% 100 MG/5 ML SDV (FOR ANES.) As Ordered ONE (08:06)
[2025-06-27] MEDS ORDERED: ONDANSETRON 4MG 2ML VIAL As Ordered ONE (08:06)
[2025-06-27] MEDS ORDERED: MIDAZOLAM INJ 2 MG/2 ML VIAL As Ordered ONE (08:07)
[2025-06-27] MEDS: LR 1,000 ML IV SCH (08:10)
[2025-06-27] MEDS: ceFAZolin SOD 2 GM IV ONCE IV ONE (09:55)
[2025-06-27] MEDS ORDERED: ACETAMINOPHEN 1000MG/100ML IV BAG As Ordered ONE (10:08)
[2025-06-27] MEDS ORDERED: LR 1,000 ML IV SCH (11:05)
[2025-06-27] MEDS ORDERED: HYDROMORPHONE HCL 0.5 MG/0.5 ML SYRINGE IV PRN (11:05)
[2025-06-27] MEDS ORDERED: ETOMIDATE 20 MG/10 ML VIAL As Ordered ONE (11:45)
[2025-06-27 13:05] VITALS: BP 165/78; TEMP 97.2; O2SAT 99
[2025-06-28] MEDS ORDERED: UNRESOLVED CLARIFICATION ENTRY XX SCH (00:01)
== END 2025-06-27 13:10 | disposition home or self-care (01) ==
LOC: M SDC 07:54
PROVIDERS: ATTEND Surgery
DX: K40.90 Unilateral inguinal hernia, without obstruction or gangrene, not specified as recurrent (principal); I10 Essential (primary) hypertension; E78.00 Pure hypercholesterolemia, unspecified; K21.9 Gastro-esophageal reflux disease without esophagitis; D64.9 Anemia, unspecified; Z79.899 Other long term (current) drug therapy; M41.9 Scoliosis, unspecified
CPT/HCPCS: 49650; 93005; C1781; J0131; J0665; J0690; J1100; J1885; J2250; J2405; J3010